=== PATIENT | female | born 1965 | race Caucasian/White ===

== ENCOUNTER 2021-06-27 07:16 | Day surgery (SDC) | payer OTHER ==
[~2021-06-27] VITALS: Ht 175.3 cm; Wt 175.8 kg
[2021-06-27] VITALS (11 sets, daily range): BP systolic 101–1528; BP diastolic 54–78; PULSE 66–89; TEMP 98.4
[~2021-06-27 07:16] MED LIST: ALEVE220 MG PO; CARAFATE PO; ESGIC PLUS; LISINOPRIL20 MG PO; METFORMIN500 MG PO; PROMETRIUM100 MG/CAP; PROTONIX 40MG T40 MG PO; PROZAC20 MG PO; TYLENOL PM EXTR1 TA1 PO
[2021-06-27 08:23] LABS: HEMATOCRIT 42.6 % (37.0-47.0); HEMOGLOBIN 12.7 g/dl (12.5-16.0); MEAN CELL VOLUME 85 fl (80.0-100.0); MEAN CORPUSCULAR HEMOGLOBIN 26 pg (27.0-31.0); MEAN CORPUSCULAR HGB CONC 30 g/dl (33.0-37.0); MEAN PLATELET VOLUME 11.7 fl (7.4-10.4); PLATELET COUNT 187 K/mm3 (130-400); RED BLOOD COUNT 4.99 M/mm3 (4.10-5.30); REDCELL DISTRIBUTION WIDTH-CV 15.3 % (11.5-14.5)
[2021-06-27 08:26] LABS: PROTHROMBIN TIME 11.6 SECONDS (9.7-12.8)
[2021-06-27 08:34] LABS: CALCIUM 9.5 mg/dL (8.4-10.2); CREATININE, serum 0.9 mg/dL (0.57-1.11); POTASSIUM 4.3 mmol/L (3.5-4.5)
--- NOTE | 2021-06-27 08:36 | NUR ---
SEE MERGE FOR ALL MEDICATIONS ADMINSTRATION TIMES/DOSAGES AND INTRA/POST SEDATION ASSESSMENT.
[2021-06-27] MEDS ORDERED: TOPROL XL 50MG50 MG PO (09:09)
[2021-06-27] MEDS ORDERED: ATACAND32 MG PO (09:09)
[2021-06-27] MEDS ORDERED: ASPIRIN 81M81 MG/TA2 PO (09:10)
[2021-06-27] MEDS ORDERED: GLUCOPHAGE500 MG/TAB PO (09:10)
[2021-06-27] MEDS ORDERED: MOBIC15 MG PO (09:11)
[2021-06-27] MEDS ORDERED: JARDIANCE25 PO (09:11)
[2021-06-27] MEDS ORDERED: LIPITOR20 MG PO (09:11)
[2021-06-27] MEDS ORDERED: PROZAC40 MG PO (09:12)
[2021-06-27] MEDS ORDERED: TRULICITY3 MG/0.5 M SQ (09:12)
[2021-06-27] MEDS ORDERED: PROTONIX 40MG T40 MG PO (09:13)
[2021-06-27] MEDS ORDERED: TYLENOL 500MG500 MG PO (09:13)
--- NOTE | 2021-06-27 09:14 | NUR ---
Pt to procedure at this time.
--- NOTE | 2021-06-27 13:15 | NUR ---
Air was removed from TR band in 2ml increments with no bleeding or complication. Rt radial puncture site dressed with 2x2 and bandaid. Pt has ambulated to restroom with steady gait. INT DC'd with catheter intact. Pt is assisted out to 's car by wheelchair. Both expressed understanding of DC paperwork.
== END 2021-06-27 13:15 | disposition home or self-care (01) ==
LOC: COL.CAR 07:16
PROVIDERS: Internal Medicine Cardiovascular Disease
DX: I25.10 Atherosclerotic heart disease of native coronary artery without angina pectoris (principal); R00.2 Palpitations; R06.00 Dyspnea, unspecified; R94.39 Abnormal result of other cardiovascular function study
CPT/HCPCS: J1644; J2250; J3010; Q9967